=== PATIENT | female | born 1990 | race Caucasian/White ===

== ENCOUNTER 2017-06-03 10:59 | Inpatient (IN) | payer MEDICAID ==
[~2017-06-03] VITALS: Ht 162.6 cm; Wt 67.7 kg
[2017-06-03 11:00] VITALS: BP 134/89; PULSE 114; RESP 20; TEMP 98.3; O2SAT 100
[2017-06-03 11:55] LABS: AUTOMATED NEUTROPHIL # 9.8 TH/MM3 (1.8-7.7); BASOPHIL # 0.1 TH/MM3 (0-0.2); BASOPHIL % 0.5 % (0.0-2.0); EOSINOPHIL % 0.3 % (0.0-4.0); HEMATOCRIT 33.8 % (35.0-46.0); HEMO FLAGS DIFF FINAL; LYMPH % 10.4 % (9.0-44.0); LYMPHOCYTE # 1.3 TH/MM3 (1.0-4.8); MEAN CELL VOLUME 82.8 FL (80.0-100.0); MEAN CORPUSCULAR HEMOGLOBIN 27.3 PG (27.0-34.0); MEAN CORPUSCULAR HGB CONC 32.9 % (32.0-36.0); MONO % 7.9 % (0.0-8.0); NEUT % 80.9 % (16.0-70.0); PLATELET COUNT 345 TH/MM3 (150-450); RED BLOOD COUNT 4.08 MIL/MM3 (4.00-5.30); WHITE BLOOD COUNT 12.1 TH/MM3 (4.0-11.0)
[2017-06-03 12:02] LABS: BACTERIA, URINE MOD /hpf; BLOOD, URINE LARGE (NEG); GLUCOSE,URINE NEG (NEG); KETONE, URINE NEG (NEG); NITRITE,URINE NEG (NEG); PH, URINE 6.5 (5.0-8.5); SQUAMOUS EPITHELIAL CELL URINE 1 /hpf (0-5)
[2017-06-03 12:04] LABS: COMMENT (UR) CULTURE INDICATED; CULTURE IF INDICATED CULTURE INDICATED; URINE COLOR LIGHT-RED (YELLW/STRAW)
[2017-06-03 12:05] VITALS: BP 116/68; PULSE 108; RESP 18; TEMP 98.5; O2SAT 100
[2017-06-03 12:14] LABS: BICARBONATE 27.1 MEQ/L (21.0-32.0); CALCIUM-PROTEIN CORRECTED 11.4 MG/DL (8.5-10.1); POTASSIUM 3.9 MEQ/L (3.5-5.1); TOTAL BILIRUBIN ADULT 0.3 MG/DL (0.2-1.0)
[2017-06-03] MEDS ORDERED: SODIUM CHLOR 0.9% 1000 ML INJ 1,000 ML IV SCH (12:14)
[2017-06-03] MEDS ORDERED: KETOROLAC TROMETHAMINE 30 MG/ML (IVP) VIAL IVP ONE (12:15)
--- NOTE | 2017-06-03 12:23 | PD ---
HPI Chief Complaint: Complaint Time Seen by Provider: 12:15 Travel History International Travel<30 days: No Contact w/Intl Traveler<30days: No Traveled to known affect area: No History of Present Illness HPI 27 year old female with past medical history of kidney stones and hyperparathyroid presents to the emergency department for evaluation of bilateral flank pain since March. She reports over the last 24 hours the pain has intensified and she has subjective fever, chills, nausea ,vomiting and hematuria. Patient reports in March she was diagnosed with bilateral kidney stones the right side requiring stent placement. She reports she has not followed up with urology since the procedure. She reports that she has had continued pain since March. She also reports some right sided abdominal pain that has been present since March. [facility] Past Medical History Narrative Medical Significant for hyperparathyroid and nephrolithiasis Cardiovascular Problems: Yes (HTN) Diminished Hearing: No Kidney Stones: Yes (stent) Tetanus Vaccination: Unknown Influenza Vaccination: No ?: Not LMP: 05/18/17 : 2 Para: 1 Miscarriage: 1 Past Surgical History Section: Yes (1) Social History Alcohol Use: No Tobacco Use: No Substance Use: No Allergies-Medications (Allergen,Severity, Reaction): Coded Allergies: Penicillin (Verified Allergy, Intermediate, RASH, 06/03/17) Reported Meds & Prescriptions Reported Meds & Active Scripts Active No Active Prescriptions or Reported Medications Review of Systems Except as stated in HPI: all other systems reviewed are Neg General / Constitutional: Positive: Fever Eyes: No: Visual changes HENT: No: Headaches Cardiovascular: No: Chest Pain or Discomfort Respiratory: No: Shortness of Breath Gastrointestinal: Positive: Vomiting, Diarrhea, Abdominal Pain Musculoskeletal: No: Pain Skin: No Rash Physical Exam Narrative GENERAL: Alert, well-appearing female SKIN: Focused skin assessment warm/dry. HEAD: Atraumatic. Normocephalic. EYES: Pupils equal and round. No scleral icterus. No injection or drainage. ENT: No nasal bleeding or discharge. Mucous membranes pink and moist. NECK: Trachea midline. No JVD. CARDIOVASCULAR: Mildly tachycardic.Regular rate and rhythm. No murmur appreciated. RESPIRATORY: No accessory muscle use. Clear to auscultation. Breath sounds equal bilaterally. GASTROINTESTINAL: Abdomen soft, point tenderness right upper and lower quadrants , nondistended. No guarding or rebound .Hepatic and splenic margins not palpable. Bilateral CVA tenderness MUSCULOSKELETAL: No obvious deformities. No clubbing. No cyanosis. No edema. NEUROLOGICAL: Awake and alert. No obvious cranial nerve deficits. Motor grossly within normal limits. Normal speech. PSYCHIATRIC: Appropriate mood and affect; insight and judgment normal. Data Data Last Documented VS Vital Signs Date Time Temp Pulse Resp B/P Pulse Ox O2 Delivery O2 Flow Rate FiO2 06/03/17 14:00 98.2 96 16 122/67 100 Room Air Orders Urinalysis - C+S If Indicated (06/03/17 11:12) Ed Urine Pregnancytest Poc (06/03/17 11:12) Complete Blood Count With Diff (06/03/17 11:12) Comprehensive Metabolic Panel (06/03/17 11:12) Lipase (06/03/17 11:12) Urine Culture (06/03/17 11:25) Ct Abd/Pel W/O Iv Contrast (06/03/17 12:14) Sodium Chlor 0.9% 1000 Ml Inj (Ns 1000 M (06/03/17 12:14) Ketorolac Inj (Toradol Inj) (06/03/17 12:15) Ceftriaxone Inj (Rocephin Inj) (06/03/17 13:45) Lactic Acid Sepsis Protocol (06/03/17 13:45) Blood Culture (06/03/17 13:45) Labs Laboratory Tests Test 06/03/17 11:25 White Blood Count 12.1 TH/MM3 Red Blood Count 4.08 MIL/MM3 Hemoglobin 11.1 GM/DL Hematocrit 33.8 % Mean Corpuscular Volume 82.8 FL Mean Corpuscular Hemoglobin 27.3 PG Mean Corpuscular Hemoglobin 32.9 % Concent Red Cell Distribution Width 13.0 % Platelet Count 345 TH/MM3 Mean Platelet Volume 8.6 FL Neutrophils (%) (Auto) 80.9 % Lymphocytes (%) (Auto) 10.4 % Monocytes (%) (Auto) 7.9 % Eosinophils (%) (Auto) 0.3 % Basophils (%) (Auto) 0.5 % Neutrophils # (Auto) 9.8 TH/MM3 Lymphocytes # (Auto) 1.3 TH/MM3 Monocytes # (Auto) 1.0 TH/MM3 Eosinophils # (Auto) 0.0 TH/MM3 Basophils # (Auto) 0.1 TH/MM3 CBC Comment DIFF FINAL Differential Comment Urine Color LIGHT-RED Urine Turbidity HAZY Urine pH 6.5 Urine Specific [place] 1.017 Urine Protein 100 mg/dL Urine Glucose (UA) NEG mg/dL Urine Ketones NEG mg/dL Urine Occult Blood LARGE Urine Nitrite NEG Urine Bilirubin NEG Urine Urobilinogen LESS THAN 2.0 MG/DL Urine Leukocyte Esterase LARGE Urine RBC /hpf Urine WBC 151 /hpf Urine Squamous Epithelial 1 /hpf Cells Urine Bacteria MOD /hpf Microscopic Urinalysis Comment CULTURE INDICATED Sodium Level 134 MEQ/L Potassium Level 3.9 MEQ/L Chloride Level 103 MEQ/L Carbon Dioxide Level 27.1 MEQ/L Anion Gap 4 MEQ/L Blood Urea Nitrogen 15 MG/DL Creatinine 1.68 MG/DL Estimat Glomerular Filtration 36 ML/MIN Rate Random Glucose 128 MG/DL Calcium Level 12.3 MG/DL Protein Corrected Calcium 11.4 MG/DL Total Bilirubin 0.3 MG/DL Aspartate Amino Transf 14 U/L (AST/SGOT) Alanine Aminotransferase 19 U/L (ALT/SGPT) Alkaline Phosphatase 179 U/L Total Protein 8.5 GM/DL Albumin 3.6 GM/DL Lipase 81 U/L [facility] Medical Decision Making Medical Screen Exam Complete: Yes Emergency Medical Condition: Yes Differential Diagnosis Nephrolithiasis, hydronephrosis, UTI, appendicitis Narrative Course 27-year-old female with history of bilateral kidney stones presents to the emergency department for evaluation of bilateral flank pain, abdominal pain, fever, chills, nausea and vomiting. Patient reports that she has had bilateral flank pain as well as right-sided abdominal pain since March when she was diagnosed with kidney stones and had a right ureter stent placed. Her pain has intensified of the last 24 hours prompting her visit today. IV access established, labs and urine pending, IV hydration and pain medication ordered. CT scan pending. CBC: WBC 12.1 BMP: Calcium 12.8-patient reports she has chronically elevated calcium levels due to her hyperparathyroid UA: Positive for blood, white blood cells, bacteria CT abdomen and pelvis: Shows moderate to severe bilateral hydronephrosis. Bilateral renal stones. Physician Communication Physician Communication [id number] Santiago [facility] control [facility] he agrees to see patient & would like her admitted to medicine. Diagnosis Primary Impression: Hydronephrosis Qualified Code: N13.30 - Hydronephrosis, unspecified hydronephrosis type Additional Impressions: UTI (urinary tract infection) Qualified Code: N39.0 - Urinary tract infection with hematuria, site unspecified Acute kidney injury Nephrolithiasis Scripts No Active Prescriptions or Reported Meds Jennie Christensen Jun 03, 2017 12:23
--- NOTE | 2017-06-03 13:31 | RADRPT ---
EXAM DATE/TIME: 06/03/2017 12:57 [facility] COMPARISON: No previous studies available for comparison. INDICATIONS : Hematuria with history of renal stones. ORAL CONTRAST: No oral contrast ingested. RADIATION DOSE: 9.96 CTDIvol (mGy) MEDICAL HISTORY : Renal calculi. Hypertension. SURGICAL HISTORY : Renal stents ENCOUNTER: Initial ACUITY: 1 day PAIN SCALE: 5/10 LOCATION: Bilateral flank TECHNIQUE: Volumetric scanning of the abdomen and pelvis was performed. Using automated exposure control and ad justment of the mA and/or kV according to patient size, radiation dose was kept as low as reasonably achievable to obtain optimal diagnostic quality images. DICOM format image data is available electro nically for review and comparison. FINDINGS: LOWER LUNGS: The visualized lower lungs are clear. LIVER: Homogeneous density without lesion. There is no dilation of the biliary tree. No calcified gallston es. SPLEEN: Normal size without lesion. PANCREAS: Within normal limits. KIDNEYS: There is a moderate to severe right hydronephrosis and hydroureter. Double-J ureteral stent is presen t with proximal aspect of the renal pelvis and distal aspect in the urinary bladder. However, there r emains significant hydroureter. There are 3 nonobstructing right renal stones measuring between 2 mm and 8 mm. No right ureteral stones are visualized. There is also severe left hydronephrosis and hydro ureter caused by an irregular shaped elongated stone in the distal left ureter just proximal to the u reterovesical junction measuring 18 x 9 mm. There are is a single nonobstructing stone in the left lo wer pole kidney measuring 4 mm. ADRENAL GLANDS: Within normal limits. VASCULAR: There is no aortic aneurysm. BOWEL/MESENTERY: The stomach, small bowel, and colon demonstrate no acute abnormality. There is no free intraperitone al air or fluid. ABDOMINAL WALL: Within normal limits. RETROPERITONEUM: There is no lymphadenopathy. BLADDER: No wall thickening or mass. REPRODUCTIVE: Within normal limits. IUD is present. INGUINAL: There is no lymphadenopathy or hernia. MUSCULOSKELETAL: Within normal limits for patient age. CONCLUSION: 1. There is an 18 x 9 mm stone in the distal left ureter just proximal to the ureterovesical junction . It is causing severe left hydronephrosis and hydroureter. 2. There is moderate to severe right hydronephrosis and hydroureter. Ureteral stent is present. Since the hydronephrosis remains the ureteral stent may not be functioning appropriately or may be occlude d. 3. There are bilateral nonobstructing renal stones, 3 in the right kidney and one in the left kidney. Heri Burks MD on June 03, 2017 at 13:20 Board Certified Radiologist. This report was verified electronically.
[2017-06-03] MEDS ORDERED: cefTRIAXone INJ 1,000 MG in SODIUM CHLORIDE 0.9% INJ 100 ML IV ONE (13:45)
[2017-06-03 14:00] VITALS: BP 122/67; PULSE 96; RESP 16; TEMP 98.2; O2SAT 100
[2017-06-03] MEDS ORDERED: ONDANSETRON HCL 4 MG/2 ML VIAL IV PUSH PRN (15:00)
[2017-06-03] MEDS ORDERED: HYDROmorphone HCL PF 1 MG/ML VIAL IV PUSH PRN (15:30)
--- NOTE | 2017-06-03 15:54 | HHI.HP ---
HPI Service [facility] Primary Care Physician PRIYA Mota Admission Diagnosis hydronephrosis, JUAN CARLOS, UTI, nephrolithiasis Diagnoses: Chief Complaint: Severe flank pain, hematuria, hydronephrosis, nephrolithiasis Travel History International Travel<30 Days: No Contact w/Intl Traveler <30 Da: No Traveled to Known Affected Are: No Sepsis Criteria SIRS Criteria (2 or more): Heart rate over 90, WBC > 71226, < 4000 or > 10% bands Sepsis Criteria (SIRS+source): Infect source susp/known Severe Sepsis (+one): Organ Dysfunction, Acute Oliguria/Renal Failure Criteria Outcome: Meets SIRS criteria, Meets sepsis criteria History of Present Illness Written by Aries East, acting as scribe for Dr. Wu on 06/03/17 at 15: 28. Patient is a 27-year-old female with primary medical history of kidney stones status post stent placement on the right kidney, hyperparathyroidism who came into the hospital for complaints of increasing and severe flank pain. Patient states she went to [facility] last March 2017 and was found to have kidney stones on both kidneys and they did right stent placement. Postprocedure patient was unable to follow up with urologist stating that the urologist does not accept her insurance. Reports since after stent placement she continues to have blood in the urine but last night the pain was increasing she had vomited last night and this morning, noticed to have fevers and chills that she came to the hospital for further evaluation. States pain continues to be on bilateral flank left greater than the right, rated 8/10, radiates towards the pelvic area, relieved by pain medication. Patient reports dysuria, hematuria, increased urination, also suprapubic pain. Patient also states that she was seen in November 2015 in [place] and have left side nephrostomy tube placement secondary to kidney stones. Denies SOB/ dyspnea. Denies chest pain, palpitations, headaches, dizziness. Denies fevers, chills, diarrhea. Review of Systems Except as stated in HPI: all other systems reviewed are Neg Past Family Social History Past Medical History Kidney stones Hyperparathyroidism Past Surgical History Right kidney Stent placement 03/2017 Nephrostomy tube placement 11/2015 Reported Medications No Active Prescriptions or Reported Medications Allergies: Coded Allergies: Penicillin (Verified Allergy, Intermediate, RASH, 06/03/17) Active Ordered Medications Inpatient Medications Ceftriaxone Sodium 1000 mg/ Sodium Chloride 50 ml @ 100 mls/hr DAILY IV ; Start 06/04/17 at 13:00; Status UNV Ceftriaxone Sodium/Sodium Chloride (Rocephin Inj/NS Inj) 100 ml @ 200 mls/hr ONCE ONCE IV Last administered on 06/03/17 14:20; Start 06/03/17 at 13:45; Stop 06/03/17 at 14:14; Status DC Ketorolac Tromethamine 30 mg 30 mg ONCE ONCE IVP Last administered on 12:35; Start 06/03/17 at 12:15; Stop 06/03/17 at 12:17; Status DC Ondansetron HCl 4 mg 4 mg Q8HR PRN IV PUSH NAUSEA; Start 06/03/17 at 15:00; Status UNV Sodium Chloride (NS 1000 ml Inj) 1,000 ml @ 125 mls/hr Q8H IV ; Start 06/03/17 at 15:00; Status UNV Current Medications Medications (Trade) Dose Ordered Sig/James Route Start Time Stop Time Status Last Admin Ondansetron HCl 4 mg 4 mg Q8HR PRN IV PUSH 06/03/17 15:00 UNV Ceftriaxone Sodium 1000 mg/ Sodium Chloride 50 ml @ 100 mls/hr DAILY IV 06/04/17 13:00 UNV (NS 1000 ml Inj) 1,000 ml @ 125 mls/hr Q8H IV 06/03/17 15:00 UNV Family History Mother and sister have asthma and thyroid disease Aunt has kidney stones Social History Denies alcohol use Denies tobacco use Denies illicit drug use Physical Exam Vital Signs Vital Signs Date Time Temp Pulse Resp B/P Pulse Ox O2 Delivery O2 Flow Rate FiO2 06/03/17 14:00 98.2 96 16 122/67 100 Room Air 06/03/17 12:05 98.5 108 18 116/68 100 Room Air 06/03/17 11:00 98.3 114 20 134/89 100 Room Air Physical Exam GENERAL: This is a well-nourished, well-developed patient, in no apparent distress. SKIN: Left flank with small circular scar from nephrostomy. Warm and dry. HEAD: Atraumatic. Normocephalic. No temporal or scalp tenderness. EYES: Pupils equal round and reactive. Extraocular motions intact. No scleral icterus. No injection or drainage. ENT: Nose without bleeding. Throat without erythema. Uvula midline. Airway patent. NECK: Trachea midline. No JVD or lymphadenopathy. Supple, nontender, no meningeal signs. CARDIOVASCULAR: Regular rate and rhythm without murmurs, gallops, or rubs. RESPIRATORY: Clear to auscultation. Breath sounds equal bilaterally. No wheezes , rales, or rhonchi. GASTROINTESTINAL: Abdomen soft, non-tender, nondistended. Tenderness bilateral groin and suprapubic area to palpate. Left flank tenderness, CVA tenderness. MUSCULOSKELETAL: Extremities without clubbing, cyanosis, or edema. NEUROLOGICAL: Awake and alert. Oriented to person, place, and time. Motor and sensory grossly within normal limits. Five out of 5 muscle strength in all muscle groups. Normal speech. Laboratory Laboratory Tests Test 06/03/17 06/03/17 11:25 14:12 White Blood Count 12.1 Red Blood Count 4.08 Hemoglobin 11.1 Hematocrit 33.8 Mean Corpuscular Volume 82.8 Mean Corpuscular Hemoglobin 27.3 Mean Corpuscular Hemoglobin 32.9 Concent Red Cell Distribution Width 13.0 Platelet Count 345 Mean Platelet Volume 8.6 Neutrophils (%) (Auto) 80.9 Lymphocytes (%) (Auto) 10.4 Monocytes (%) (Auto) 7.9 Eosinophils (%) (Auto) 0.3 Basophils (%) (Auto) 0.5 Neutrophils # (Auto) 9.8 Lymphocytes # (Auto) 1.3 Monocytes # (Auto) 1.0 Eosinophils # (Auto) 0.0 Basophils # (Auto) 0.1 CBC Comment DIFF FINAL Differential Comment Urine Color LIGHT-RED Urine Turbidity HAZY Urine pH 6.5 Urine Specific [place] 1.017 Urine Protein 100 Urine Glucose (UA) NEG Urine Ketones NEG Urine Occult Blood LARGE Urine Nitrite NEG Urine Bilirubin NEG Urine Urobilinogen LESS THAN 2.0 Urine Leukocyte Esterase LARGE Urine RBC Urine WBC 151 Urine Squamous Epithelial 1 Cells Urine Bacteria MOD Microscopic Urinalysis Comment CULTURE INDICATED Sodium Level 134 Potassium Level 3.9 Chloride Level 103 Carbon Dioxide Level 27.1 Anion Gap 4 Blood Urea Nitrogen 15 Creatinine 1.68 Estimat Glomerular Filtration 36 Rate Random Glucose 128 Calcium Level 12.3 Protein Corrected Calcium 11.4 Total Bilirubin 0.3 Aspartate Amino Transf 14 (AST/SGOT) Alanine Aminotransferase 19 (ALT/SGPT) Alkaline Phosphatase 179 Total Protein 8.5 Albumin 3.6 Lipase 81 Lactic Acid Level 0.8 Date/Time Procedure Status Source Growth 06/03/17 14:10 Aerobic Blood Culture Received Blood Peripheral Pending 06/03/17 14:10 Anaerobic Blood Culture Received Blood Peripheral Pending 06/03/17 11:25 Urine Culture Received Urine Clean Catch Pending Result Diagram: 06/03/17 1125 06/03/17 1125 Imaging Last Impressions Abdomen/Pelvis CT 06/03/17 1214 Signed Impressions: Service Date/Time: May 12:57 - CONCLUSION: 1. There is an 18 x 9 mm stone in the distal left ureter just proximal to the ureterovesical junction. It is causing severe left hydronephrosis and hydroureter. 2. There is moderate to severe right hydronephrosis and hydroureter. Ureteral stent is present. Since the hydronephrosis remains the ureteral stent may not be functioning appropriately or may be occluded. 3. There are bilateral nonobstructing renal stones, 3 in the right kidney and one in the left kidney. Heri Burks MD Assessment and Plan Problem List: (1) Nephrolithiasis ICD Code: N20.0 Status: Acute (2) Acute kidney injury ICD Code: N17.9 Status: Acute (3) Hydronephrosis ICD Code: N13.30 Status: Acute Assessment and Plan Patient is a 27-year-old female with primary medical history of kidney stones status post stent placement on the right kidney, hyperparathyroidism who came into the hospital for complaints of increasing and severe flank pain. Sepsis, SIRS Hydronephrosis Pyelonephritis - Leukocytosis 12.1, UA large local esterase, large occult blood, urine bacteria moderate, urine WBC 151. Pending cultures - CT abdomen and pelvis showed 1. There is an 18 x 9 mm stone in the distal left ureter just proximal to the ureterovesical junction it is causing severe left hydronephrosis and hydroureter. 2. There is a moderate to severe right hydronephrosis and hydroureter. Ureteral stent is present. Since the hydronephrosis remains the urethral stent may not be functioning appropriately or maybe included. 3. There are bilateral nonobstructing renal stones, 3 in the right kidney and one in the left kidney. - Patient has recurrent kidney stone with nonfunctional stent placement unable to follow up with urology. - Consult urology - Ceftriaxone IV daily - Nothing by mouth for now until seen by urology - Pain management, hydromorphone IV every 4 hours when necessary Acute kidney injury - Creatinine 1.68 - IV fluid for hydration - Secondary to hydronephrosis - Avoid nephrotoxins - Trend BMP Hyperparathyroidism - Elevated calcium levels may contribute to recurrent kidney stones. Patient states she needs surgical intervention but has not scheduled an appointment yet. - Calcium elevated 12.3, corrected 11.4 - Check vitamin D, Phos, PTH -start IV fluid - Trend BMP Mild hyponatremia - continue with IV fluid and monitor DVT prop SCD Code Status Full code Discussed Condition With Patient, significant other, nursing, ED attending Physician Certification 2 Midnight Certification Type: Admission for Inpatient Services Order for Inpatient Services The services are ordered in accordance with Medicare regulations or non- Medicare payer requirements, as applicable. In the case of services not specified as inpatient-only, they are appropriately provided as inpatient services in accordance with the 2-midnight benchmark. Estimated LOS (days): 2 days is the estimated time the patient will need to remain in the hospital, assuming treatment plan goals are met and no additional complications. Post-Hospital Plan: Home Problem Qualifiers (1) Hydronephrosis: Qualified Code: N13.30 - Hydronephrosis, unspecified hydronephrosis type Aries Shepard Jun 03, 2017 15:54 Margaux Wu MD Jun 03, 2017 16:06
[2017-06-03] MEDS: SODIUM CHLOR 0.9% 1000 ML INJ 1,000 ML IV SCH ×2 (16:06→22:36)
[2017-06-03] MEDS: TAMSULOSIN HCL 0.4 MG CAP PO SCH (16:36)
[2017-06-03 17:06] VITALS: BP 114/64
[2017-06-03 17:51] VITALS: BP 119/68; PULSE 100; RESP 18; TEMP 98.9; O2SAT 100
--- NOTE | 2017-06-03 18:03 | MB ---
cc: TIM RAO MD DATE OF CONSULTATION: 06/03/2017. REASON FOR CONSULTATION: 1. Left distal ureteral stone with moderate hydronephrosis. 2. Left flank pain. 3. History of kidney stones. 4. Right renal calculus status post cystoscopy and right ureteral stent insertion. HISTORY OF PRESENT ILLNESS: The patient is a 27-year-old female with a past medical history of kidney stones as well as hyperparathyroidism who came to the [facility] for evaluation of worsening left flank pain. The patient describes the pain as sharp, stabbing and 10/10 at its worst with nausea. She had similar complaints back in March when she went to the [facility] and was found to have bilateral kidney stones including a stone in her right ureter causing mild hydronephrosis. She had a cystoscopy and stent placement by Dr. Busch but was unable to follow up with this urologist due to insurance issues. She has a scheduled appointment with Dr. Garcia on June 15; however, since the stent placement, she has had blood in her urine but the pain has started to worsen on her left side and she vomited last night and this morning. She also denies subjective fevers and chills. The pain is greater on the left than on the right and is 10/10 at its worst. She also claims to have hematuria and dysuria as well as frequency and suprapubic pain. She had a previous nephrostomy tube back in 2015 in [place] for kidney stones. She states that she has been diagnosed with hyperparathyroidism and she is scheduled to see a surgeon on June 22 for possible parathyroidectomy. She denies a family history of kidney stones or genitourinary malignancies. Currently her pain is improved with IV pain medication. REVIEW OF SYSTEMS: See the history of present illness, otherwise all systems reviewed and are otherwise negative. PAST MEDICAL HISTORY: Her past medical history is significant for: 1. Kidney stones. 2. Hyperparathyroidism. 3. Urinary tract infections. PAST SURGICAL HISTORY: 1. History of cystoscopy and right ureteral stent placement in March of 2017. 2. Left nephrostomy tube placement in November of 2015. ALLERGIES: PENICILLIN. HOME MEDICATIONS: No home medications. FAMILY HISTORY: Denies urolithiasis or malignancies. SOCIAL HISTORY Denies alcohol, tobacco or illicit drug use. PHYSICAL EXAMINATION: VITAL SIGNS: Temperature 98.2, pulse 96, respiratory rate 16, blood pressure 122/67, satting 100% on room air. GENERAL: She is alert and oriented times three and in no acute distress. She is a pleasant and cooperative lady who appears her stated age. HEAD, EYES, EARS, NOSE, THROAT: Head is normocephalic and atraumatic. Eyes - No scleral icterus. Extraocular muscles intact. NECK: The neck is supple. Trachea is midline. No jugular venous distention. SKIN: No ulcers or rashes. The mucous membranes are moist and pink. LUNGS: Clear to auscultation bilaterally. No wheezes, rales or rhonchi. HEART: Regular rate and rhythm. No murmurs, rubs or gallops. ABDOMEN: The abdomen is soft, nontender and nondistended. Positive bowel sounds. No costovertebral angle tenderness. PELVIC: Not done at this time. EXTREMITIES: Nontender. No cyanosis, clubbing or edema. PSYCHIATRIC: Normal affect. NEUROLOGIC: Cranial nerves II through XII intact. Strength is 5/5 in all four extremities. LABS: Labs show a white count of 12.1, hemoglobin 11.1, hematocrit 33.8, platelet count 345,000. Sodium 134, potassium 3.9, chloride 103, bicarbonate 27.1, BUN 15, creatinine 1.68, calcium 12.3. Urine shows large blood, large leukocyte esterase, negative nitrates, cultures currently pending. IMAGING STUDIES: CT of the abdomen and pelvis without contrast images are reviewed. Agree with the radiologist's report. The patient has a 1.8 cm distal left ureteral stone with moderate hydronephrosis with a small in the left lower pole kidney. The patient also has three nonspecific regular stones with the largest being 8 mm with a right ureteral stent in place and moderate hydronephrosis. ASSESSMENT AND PLAN: The patient is a 27-year-old female with history of hyperparathyroidism and kidney stones who presents with severe left flank pain and who was found to have an obstructing left distal ureteral stone with moderate hydronephrosis approximately 1.8 cm in size as well as a nonobstructing right ureteral stone with a right ureteral stent in place. PLAN: 1. Will make the patient n.p.o. after midnight. 2. Will schedule the patient for cystoscopy, left retrograde pyelogram, possible left ureteroscopy, laser lithotripsy, stent insertion on the left kidney as well as right ureteral stent exchange. I discussed the risks, benefits, alternatives with the patient and her regarding the procedure including pain, bleeding, infection, inability to pass a stent, possible need for placement of the nephrostomy tube as well as additional procedures in the future. She understood all these risks, answered all questions would like to proceed. An informed consent was obtained. Tim Rao MD EMGreta/MARCO /4:41 PM /5:48 PM
[2017-06-03 20:00] VITALS: BP 120/72; PULSE 116; RESP 18; TEMP 97.8; O2SAT 100
[2017-06-03] MEDS ORDERED: SODIUM CHLORID 0.9% 500 ML IV PRN (23:45)
[2017-06-03] MEDS ORDERED: CHLORHEXIDINE GLUCONATE 2 % 1 PACK (2 CLOTHS) TOPICAL PRN (23:45)
[2017-06-04] VITALS: BP 108/62; PULSE 115; RESP 18; TEMP 100.9; O2SAT 98
[2017-06-04] MEDS: SODIUM CHLOR 0.9% 1000 ML INJ 1,000 ML IV SCH ×3 (05:36→21:01)
[2017-06-04 07:13] LABS: AUTOMATED NEUTROPHIL # 5.1 TH/MM3 (1.8-7.7); BASOPHIL % 0.4 % (0.0-2.0); EOSINOPHIL # 0.1 TH/MM3 (0-0.4); EOSINOPHIL % 0.9 % (0.0-4.0); HEMATOCRIT 26.3 % (35.0-46.0); HEMO FLAGS DIFF FINAL; LYMPH % 25.3 % (9.0-44.0); LYMPHOCYTE # 2.1 TH/MM3 (1.0-4.8); MEAN CELL VOLUME 83.6 FL (80.0-100.0); MEAN CORPUSCULAR HEMOGLOBIN 27.4 PG (27.0-34.0); MEAN CORPUSCULAR HGB CONC 32.8 % (32.0-36.0); MONO % 11.7 % (0.0-8.0); NEUT % 61.7 % (16.0-70.0); PLATELET COUNT 268 TH/MM3 (150-450); RED BLOOD COUNT 3.14 MIL/MM3 (4.00-5.30); RED CELL DISTRIBUTION WIDTH 13.1 % (11.6-17.2); WHITE BLOOD COUNT 8.3 TH/MM3 (4.0-11.0)
[2017-06-04 07:17] LABS: BICARBONATE 26.4 MEQ/L (21.0-32.0); POTASSIUM 4.2 MEQ/L (3.5-5.1)
[2017-06-04 08:00] VITALS: BP 116/72; PULSE 98; RESP 17; TEMP 96; O2SAT 100
--- NOTE | 2017-06-04 08:20 | RADRPT ---
EXAM DATE/TIME: 06/04/2017 07:33 [facility] COMPARISON: CT ABDOMEN & PELVIS W/O CONTRAST, June 03, 2017, 12:57. INDICATIONS : Bilateral renal calculi. Left flank pain. MEDICAL HISTORY : Hypertension. Renal calculi. Hyperparathyroidism. SURGICAL HISTORY : section. Renal stents. Lithotripsy. Nephrostomy tube. ENCOUNTER: Subsequent ACUITY: 2 days PAIN SCORE: 5/10 LOCATION: Left flank FINDINGS: There is a Double J stent in place on the right with a 7 mm calcification lower pole right kidney. T here are no calcifications along the stent. The patient has an IUD in. [place] calcification is seen in the left side of the pelvis measuring 2.3 cm x 0.7 cm described in th e distal left ureter in the comparison study. Other calcifications described by the CT are not visualized by plain radiographs. CONCLUSION: 1. Stent on the right. 2. Obstructing distal ureteral calculus on the left. Saqib Pink MD FACR on June 04, 2017 at 7:49 Board Certified Radiologist. This report was verified electronically.
[2017-06-04] MEDS ORDERED: PROPOFOL 200 MG/20 ML AMP IV ONE (08:32)
[2017-06-04] MEDS ORDERED: ePHEDrine/NS 25 MG/5 ML SYR IV ONE (08:32)
[2017-06-04] MEDS ORDERED: PHENYLEPH/NS 1000 MCG/10 ML SYR IV ONE (08:32)
[2017-06-04] MEDS ORDERED: ONDANSETRON HCL 4 MG/2 ML VIAL IV PUSH ONE (08:33)
[2017-06-04] MEDS ORDERED: IOHEXOL 300 MG/ML 50 ML BTL (for RAD DIAG) ONE (08:38)
[2017-06-04] MEDS: TAMSULOSIN HCL 0.4 MG CAP PO SCH (09:00)
--- NOTE | 2017-06-04 09:39 | HHI.PR ---
Subjective Remarks f/u; nephrolithiasis has mild pain to the left flank. Tmax 100.9. no dizziness,nausea or vomiting. Objective Vitals Vital Signs Date Time Temp Pulse Resp B/P Pulse Ox O2 Delivery O2 Flow Rate FiO2 06/04/17 08:00 96.0 98 17 116/72 100 06/04/17 00:00 100.9 115 18 108/62 98 06/03/17 20:00 97.8 116 18 120/72 100 06/03/17 17:51 98.9 100 18 119/68 100 06/03/17 17:06 77 16 114/64 100 06/03/17 14:00 98.2 96 16 122/67 100 Room Air 06/03/17 12:05 98.5 108 18 116/68 100 Room Air 06/03/17 11:00 98.3 114 20 134/89 100 Room Air I/O 06/03/17 06/03/17 06/03/17 06/04/17 06/04/17 06/04/17 07:00 15:00 23:00 07:00 15:00 23:00 Intake Total 720 ml 1092 ml Output Total 2150 ml Balance 720 ml -1058 ml Intake Oral 480 ml 0 ml IV Total 240 ml 1092 ml Output Urine Total 2150 ml # Voids 0 # Bowel Movements 0 0 Result Diagram: 06/04/17 0543 06/04/17 0543 Imaging Last Impressions Abdomen/Pelvis CT 06/03/17 1214 Signed Impressions: Service Date/Time: May 12:57 - CONCLUSION: 1. There is an 18 x 9 mm stone in the distal left ureter just proximal to the ureterovesical junction. It is causing severe left hydronephrosis and hydroureter. 2. There is moderate to severe right hydronephrosis and hydroureter. Ureteral stent is present. Since the hydronephrosis remains the ureteral stent may not be functioning appropriately or may be occluded. 3. There are bilateral nonobstructing renal stones, 3 in the right kidney and one in the left kidney. Heri Burks MD Objective Remarks GENERAL: This is a well-nourished, well-developed patient, in no apparent distress. CARDIOVASCULAR: Regular rate and regular rhythm without murmurs, gallops, or rubs. RESPIRATORY: Clear to auscultation. Breath sounds equal bilaterally. No wheezes , rales, or rhonchi. GASTROINTESTINAL: Abdomen soft, non-tender, nondistended. Normal, active bowel sounds MUSCULOSKELETAL: Extremities without clubbing, cyanosis, or edema. NEURO: Alert & Oriented x4 to person, place, time, situation. Moves all ext x4 Procedures none Medications and IVs Current Medications Sodium Chloride (NS 1000 ml Inj) 1,000 ml @ 1,000 mls/hr Q1H IV Last administered on 06/03/17 12:35; Start 06/03/17 at 12:14; Stop 06/03/17 at 13:13; Status DC Ketorolac Tromethamine 30 mg 30 mg ONCE ONCE IVP Last administered on 12:35; Start 06/03/17 at 12:15; Stop 06/03/17 at 12:17; Status DC Ceftriaxone Sodium/Sodium Chloride (Rocephin Inj/NS Inj) 100 ml @ 200 mls/hr ONCE ONCE IV Last administered on 06/03/17 14:20; Start 06/03/17 at 13:45; Stop 06/03/17 at 14:14; Status DC Ondansetron HCl 4 mg 4 mg Q8H PRN IV PUSH NAUSEA; Start 06/03/17 at 15:00 Ceftriaxone Sodium 1000 mg/ Sodium Chloride 50 ml @ 100 mls/hr Q24H IV ; Start 06/04/17 at 13:00 Sodium Chloride (NS 1000 ml Inj) 1,000 ml @ 125 mls/hr Q8H IV Last administered on 06/04/17 05:36; Start 06/03/17 at 15:00 Hydromorphone HCl (Dilaudid Pf Inj) 0.5 mg Q4H PRN IV PUSH PAIN SCALE 1 TO 10; Start 06/03/17 at 15:30 Tamsulosin HCl 0.4 mg 0.4 mg DAILY PO Last administered on 06/03/17 16:36; Start 06/03/17 at 16:15 Sodium Chloride (NS 500 ml Inj) 500 ml @ 30 mls/hr [id number] PRN IV SEE LABEL COMMENTS; Start 06/03/17 at 23:45; Stop 06/06/17 at 23:44 Chlorhexidine Gluconate (Chlorhexidine 2% Cloth) 3 pack MARKETING STRATEGY ANALYST PRN TOPICAL SEE LABEL COMMENTS; Start 06/03/17 at 23:45; Stop 06/06/17 at 23:44 A/P Assessment and Plan Sepsis, SIRS Hydronephrosis Pyelonephritis - Pending cultures - CT abdomen and pelvis showed 1. There is an 18 x 9 mm stone in the distal left ureter just proximal to the ureterovesical junction it is causing severe left hydronephrosis and hydroureter. 2. There is a moderate to severe right hydronephrosis and hydroureter. Ureteral stent is present. Since the hydronephrosis remains the urethral stent may not be functioning appropriately or maybe included. 3. There are bilateral nonobstructing renal stones, 3 in the right kidney and one in the left kidney. - Patient has recurrent kidney stone with nonfunctional stent placement unable to follow up with urology. - Consulted urology; plan for cystoscopy , left retrograde pyelogram, today. - Ceftriaxone IV daily -continue with pain control. Acute kidney injury- improving. - IV fluid for hydration - Secondary to hydronephrosis - Avoid nephrotoxins - Trend BMP Hyperparathyroidism - Elevated calcium levels may contribute to recurrent kidney stones. Patient states she needs surgical intervention but has not scheduled an appointment yet. - Calcium level improving. - continue IV fluid - Trend BMP vitamin d deficiency; will strat replacement hypophosphatemia; will replace anemia- due to IV hydration/ dilution- will monitor H/H; CBC in am. Mild hyponatremia - continue with IV fluid and monitor DVT prop SCD Margaux Wu MD Jun 04, 2017 09:39
[2017-06-04] MEDS ORDERED: ACETAMINOPHEN 325 MG TAB PO PRN (09:45)
[2017-06-04] MEDS ORDERED: MIDAZOLAM HCL 2 MG/2 ML VIAL ONE (11:37)
[2017-06-04] MEDS ORDERED: DEXAMETHASONE SOD PHOS 4 MG/ML VIAL ONE (11:37)
[2017-06-04] MEDS ORDERED: FAMOTIDINE 20 MG/2 ML VIAL ONE (11:37)
[2017-06-04] MEDS ORDERED: CIPROFLOXACIN 400 MG PREMIX 200 ML ONE (12:00)
--- NOTE | 2017-06-04 12:27 | PD.OP ---
Operative Report Date of Surgery: Jun 04, 2017 Preoperative Diagnosis: (1) Nephrolithiasis (2) Hydronephrosis (3) Acute kidney injury Postoperative Diagnosis: Procedure: cystoscopy, left retrograde pyelogram, left ureteral stent insertion Surgeon: Tim Santiago Nuisance Animal Damage Control Agent(s): n/a Operation and Findings: right ureteral stent significantly calcified. will need ESWL to remove right stent as an outpatient. Tim Santiago MD Jun 04, 2017 12:27
[2017-06-04] MEDS ORDERED: DO NOT ADM ANY ANTICOAGULANT DRUGS PRN (12:40)
[2017-06-04] MEDS ORDERED: cefTRIAXone INJ 1,000 MG in SODIUM CHLORIDE 0.9% INJ 50 ML IV SCH (13:00)
[2017-06-04 14:09] VITALS: BP 118/71; PULSE 88; RESP 16; TEMP 96.1; O2SAT 100
[2017-06-04 16:19] VITALS: BP 116/66; PULSE 93; RESP 16; TEMP 98.6; O2SAT 100
[2017-06-04 20:00] VITALS: BP 104/64; PULSE 99; RESP 22; TEMP 95.7; O2SAT 93
[2017-06-04] MEDS: POTASSIUM PHOSPHATE/SODIUM PHOSPHATE 250 MG TAB PO SCH (21:00)
[2017-06-05] VITALS: BP 106/57; PULSE 79; RESP 21; TEMP 95.4; O2SAT 99
[2017-06-05 04:00] VITALS: BP 119/76; PULSE 65; RESP 17; TEMP 95.3; O2SAT 99
[2017-06-05] MEDS: SODIUM CHLOR 0.9% 1000 ML INJ 1,000 ML IV SCH (04:54)
[2017-06-05] MEDS: POTASSIUM PHOSPHATE/SODIUM PHOSPHATE 250 MG TAB PO SCH (04:54)
[2017-06-05 05:44] LABS: HEMATOCRIT 28.4 % (35.0-46.0)
[2017-06-05 06:59] LABS: BICARBONATE 28.5 MEQ/L (21.0-32.0); POTASSIUM 4.2 MEQ/L (3.5-5.1)
[2017-06-05 08:00] VITALS: BP 125/66; PULSE 72; RESP 17; TEMP 95.5; O2SAT 99
[2017-06-05] MEDS: TAMSULOSIN HCL 0.4 MG CAP PO SCH (08:01)
[2017-06-05] MEDS ORDERED: CHOLECALCIFEROL (VIT D3) 1000 UNIT TAB PO SCH (09:00)
--- NOTE | 2017-06-05 09:37 | HHI.PR ---
Subjective Remarks resting comfortably with no distress. has minimal right flank pain. no nausea or vomiting. afebrile. d/w the RN and no acute issues over night. Objective Vitals Vital Signs Date Time Temp Pulse Resp B/P Pulse Ox O2 Delivery O2 Flow Rate FiO2 06/05/17 08:00 95.5 72 17 125/66 99 06/05/17 04:00 95.3 65 17 119/76 99 06/05/17 00:00 95.4 79 21 106/57 99 06/04/17 20:00 95.7 99 22 104/64 93 06/04/17 16:19 98.6 93 16 116/66 100 06/04/17 14:09 96.1 88 16 118/71 100 06/04/17 13:30 98.1 89 14 117/72 100 Room Air 06/04/17 13:15 98 14 116/67 100 Room Air 06/04/17 13:00 87 14 111/57 100 Nasal Cannula 2 06/04/17 12:45 84 14 119/60 100 Nasal Cannula 2 06/04/17 12:40 97.5 94 14 123/66 100 Nasal Cannula 3 I/O 06/04/17 06/04/17 06/04/17 06/05/17 06/05/17 06/05/17 07:00 15:00 23:00 07:00 15:00 23:00 Intake Total 1092 ml 1460 ml 1165 ml 1190 ml Output Total 2150 ml 1600 ml 1180 ml Balance -1058 ml -140 ml -15 ml 1190 ml Intake Oral 0 ml 40 ml 240 ml 240 ml IV Total 1092 ml 820 ml 925 ml 950 ml Other 600 ml Output Urine Total 2150 ml 1600 ml 1180 ml # Voids 2 2 # Bowel Movements 0 Result Diagram: 06/05/17 0339 06/05/17 0339 Imaging Last Impressions Abdomen X-Ray 06/04/17 0600 Signed Impressions: Service Date/Time: Sunday, June 04, 2017 07:33 - CONCLUSION: 1. Stent on the right. 2. Obstructing distal ureteral calculus on the left. Saqib Pink MD FACR Abdomen/Pelvis CT 06/03/17 1214 Signed Impressions: Service Date/Time: May 12:57 - CONCLUSION: 1. There is an 18 x 9 mm stone in the distal left ureter just proximal to the ureterovesical junction. It is causing severe left hydronephrosis and hydroureter. 2. There is moderate to severe right hydronephrosis and hydroureter. Ureteral stent is present. Since the hydronephrosis remains the ureteral stent may not be functioning appropriately or may be occluded. 3. There are bilateral nonobstructing renal stones, 3 in the right kidney and one in the left kidney. Heri Burks MD Objective Remarks GENERAL: This is a well-nourished, well-developed patient, in no apparent distress. CARDIOVASCULAR: Regular rate and regular rhythm without murmurs, gallops, or rubs. RESPIRATORY: Clear to auscultation. Breath sounds equal bilaterally. No wheezes , rales, or rhonchi. GASTROINTESTINAL: Abdomen soft, non-tender, nondistended. Normal, active bowel sounds MUSCULOSKELETAL: Extremities without clubbing, cyanosis, or edema. NEURO: Alert & Oriented x4 to person, place, time, situation. Moves all ext x4 Procedures cystoscopy, left retrograde pyelogram, left ureteral stent insertion Medications and IVs Current Medications Sodium Chloride (NS 1000 ml Inj) 1,000 ml @ 1,000 mls/hr Q1H IV Last administered on 06/03/17 12:35; Start 06/03/17 at 12:14; Stop 06/03/17 at 13:13; Status DC Ketorolac Tromethamine 30 mg 30 mg ONCE ONCE IVP Last administered on 12:35; Start 06/03/17 at 12:15; Stop 06/03/17 at 12:17; Status DC Ceftriaxone Sodium/Sodium Chloride (Rocephin Inj/NS Inj) 100 ml @ 200 mls/hr ONCE ONCE IV Last administered on 06/03/17 14:20; Start 06/03/17 at 13:45; Stop 06/03/17 at 14:14; Status DC Ondansetron HCl 4 mg 4 mg Q8H PRN IV PUSH NAUSEA; Start 06/03/17 at 15:00 Ceftriaxone Sodium 1000 mg/ Sodium Chloride 50 ml @ 100 mls/hr Q24H IV Last administered on 06/04/17 13:00; Start 06/04/17 at 13:00 Sodium Chloride (NS 1000 ml Inj) 1,000 ml @ 125 mls/hr Q8H IV Last administered on 06/05/17 04:54; Start 06/03/17 at 15:00 Hydromorphone HCl (Dilaudid Pf Inj) 0.5 mg Q4H PRN IV PUSH PAIN SCALE 1 TO 10; Start 06/03/17 at 15:30 Tamsulosin HCl 0.4 mg 0.4 mg DAILY PO Last administered on 06/05/17 08:01; Start 06/03/17 at 16:15 Sodium Chloride (NS 500 ml Inj) 500 ml @ 30 mls/hr [id number] PRN IV SEE LABEL COMMENTS; Start 06/03/17 at 23:45; Stop 06/06/17 at 23:44 Chlorhexidine Gluconate (Chlorhexidine 2% Cloth) 3 pack LINE ASSEMBLY UTILITY WORKER PRN TOPICAL SEE LABEL COMMENTS; Start 06/03/17 at 23:45; Stop 06/06/17 at 23:44 Cholecalciferol (Vitamin D3) 2,000 units DAILY PO Last administered on 08:02; Start 06/05/17 at 09:00 Potassium Phos/ Sodium Phos (K-Phos Neutral) 250 mg Q8HR PO Last administered on 06/05/17 04:54; Start 06/04/17 at 22:00 Acetaminophen (Tylenol) 650 mg Q4H PRN PO FEVER; Start 06/04/17 at 09:45 Midazolam HCl (Versed Inj) 2 mg STK-MED ONCE .ROUTE ; Start 06/04/17 at 11:37; Stop 06/04/17 at 11:38; Status DC Dexamethasone Sodium Phosphate (Decadron Inj) 4 mg STK-MED ONCE .ROUTE ; Start 06/04/17 at 11:37; Stop 06/04/17 at 11:38; Status DC Famotidine 20 mg 20 mg STK-MED ONCE .ROUTE ; Start 06/04/17 at 11:37; Stop at 11:38; Status DC Ciprofloxacin/ Dextrose (Cipro 400 Mg Premix) 200 ml @ As Directed STK-MED ONCE .ROUTE Last administered on 06/04/17 12:03; Start 06/04/17 at 12:00; Stop 06/04/17 at 12:01; Status DC Miscellaneous Information ALL NURSING DEPARTME... UNSCH PRN .XX SEE LABEL COMMENTS; Start 06/04/17 at 12:40; Stop 06/05/17 at 12:39 Fentanyl Citrate (fentaNYL INJ) 100 mcg STK-MED ONCE .ROUTE ; Start 06/04/17 at 14:14; Stop 06/04/17 at 14:15; Status DC A/P Assessment and Plan Sepsis, SIRS Hydronephrosis Pyelonephritis - continue antibiotic- -blood cultures negative. - CT abdomen and pelvis showed 1. There is an 18 x 9 mm stone in the distal left ureter just proximal to the ureterovesical junction it is causing severe left hydronephrosis and hydroureter. 2. There is a moderate to severe right hydronephrosis and hydroureter. Ureteral stent is present. Since the hydronephrosis remains the urethral stent may not be functioning appropriately or maybe included. 3. There are bilateral nonobstructing renal stones, 3 in the right kidney and one in the left kidney. - Patient has recurrent kidney stone with nonfunctional stent placement unable to follow up with urology. - Consulted urology;s/p cystoscopy, left retrograde pyelogram, left ureteral stent insertion -cleared by urology for discharge. Acute kidney injury- improving. - IV fluid for hydration - Secondary to hydronephrosis - Avoid nephrotoxins - Trend BMP Hyperparathyroidism/hypercalcemia/ low vit. D ; patient was notified of the result. - she says that she will have a f/u as outpatient and already has an appointment; will defer to endocrinology. hypophosphatemia; replace as needed. anemia- due to IV hydration/ dilution-H/H stable. Mild hyponatremia - improved. DVT prop SCD Discharge Planning dc home today with f/u with pcp,urology and endocrinology. see med list. d/w the patient and MAGDALENO. Margaux Wu MD Jun 05, 2017 09:37
--- NOTE | 2017-06-05 09:41 | HHI.DS ---
Discharge Summary Admission Date Jun 03, 2017 at 15:05 Discharge Date: Jun 05, 2017 Admitting Diagnosis hydronephrosis, JUAN CARLOS, UTI, nephrolithiasis (1) Nephrolithiasis ICD Code: N20.0 Diagnosis: Principal (2) Acute kidney injury ICD Code: N17.9 Diagnosis: Principal (3) Hydronephrosis ICD Code: N13.30 Diagnosis: Principal Procedures cystoscopy, left retrograde pyelogram, left ureteral stent insertion Brief History - From Admission Written by Aries [place], acting as scribe for Dr. Wu on 06/03/17 at 15: 28. Patient is a 27-year-old female with primary medical history of kidney stones status post stent placement on the right kidney, hyperparathyroidism who came into the hospital for complaints of increasing and severe flank pain. Patient states she went to [facility] last March 2017 and was found to have kidney stones on both kidneys and they did right stent placement. Postprocedure patient was unable to follow up with urologist stating that the urologist does not accept her insurance. Reports since after stent placement she continues to have blood in the urine but last night the pain was increasing she had vomited last night and this morning, noticed to have fevers and chills that she came to the hospital for further evaluation. States pain continues to be on bilateral flank left greater than the right, rated 8/10, radiates towards the pelvic area, relieved by pain medication. Patient reports dysuria, hematuria, increased urination, also suprapubic pain. Patient also states that she was seen in November 2015 in [place] and have left side nephrostomy tube placement secondary to kidney stones. Denies SOB/ dyspnea. Denies chest pain, palpitations, headaches, dizziness. Denies fevers, chills, diarrhea. CBC/BMP: 06/05/17 0339 06/05/17 0339 Significant Findings Laboratory Tests Test 06/03/17 06/03/17 06/04/17 06/05/17 11:25 19:55 05:43 03:39 White Blood Count 12.1 TH/MM3 (4.0-11.0) Hemoglobin 11.1 GM/DL 8.6 GM/DL 9.4 GM/DL (11.6-15.3) (11.6-15.3) (11.6-15.3) Hematocrit 33.8 % 26.3 % 28.4 % (35.0-46.0) (35.0-46.0) (35.0-46.0) Neutrophils (%) (Auto) 80.9 % (16.0-70.0) Neutrophils # (Auto) 9.8 TH/MM3 (1.8-7.7) Monocytes # (Auto) 1.0 TH/MM3 1.0 TH/MM3 (0-0.9) (0-0.9) Urine Color LIGHT-RED (YELLW/STRAW) Urine Turbidity HAZY (CLEAR) Urine Protein 100 mg/dL (NEG-TRACE) Urine Occult Blood LARGE (NEG) Urine Leukocyte Esterase LARGE (NEG) Urine WBC 151 /hpf (0-5) Urine Bacteria MOD /hpf (NONE) Sodium Level 134 MEQ/L (136-145) Anion Gap 4 MEQ/L (5-15) Creatinine 1.68 MG/DL 1.16 MG/DL 1.27 MG/DL (0.50-1.00) (0.50-1.00) (0.50-1.00) Estimat Glomerular Filtration 36 ML/MIN (>89) 55 ML/MIN (>89) 50 ML/MIN (>89) Rate Random Glucose 128 MG/DL 110 MG/DL (74-106) (74-106) Calcium Level 12.3 MG/DL 10.8 MG/DL 12.1 MG/DL (8.5-10.1) (8.5-10.1) (8.5-10.1) Protein Corrected Calcium 11.4 MG/DL 12.0 MG/DL (8.5-10.1) (8.5-10.1) Phosphorus Level 1.5 MG/DL 1.7 MG/DL (2.5-4.9) (2.5-4.9) Aspartate Amino Transf 14 U/L (15-37) (AST/SGOT) Alkaline Phosphatase 179 U/L (45-117) Total Protein 8.5 GM/DL (6.4-8.2) 25-Hydroxy Vitamin D Total 6.5 ng/ML (30-100) Parathyroid Hormone (Intact) 474.0 PG/ML (12.4-76.8) Red Blood Count 3.14 MIL/MM3 (4.00-5.30) Monocytes (%) (Auto) 11.7 % (0.0-8.0) Chloride Level 111 MEQ/L 109 MEQ/L (98-107) (98-107) Imaging Last Impressions Abdomen X-Ray 06/04/17 0600 Signed Impressions: Service Date/Time: Sunday, June 04, 2017 07:33 - CONCLUSION: 1. Stent on the right. 2. Obstructing distal ureteral calculus on the left. Saqib Pink MD FACR Abdomen/Pelvis CT 06/03/17 1214 Signed Impressions: Service Date/Time: May 12:57 - CONCLUSION: 1. There is an 18 x 9 mm stone in the distal left ureter just proximal to the ureterovesical junction. It is causing severe left hydronephrosis and hydroureter. 2. There is moderate to severe right hydronephrosis and hydroureter. Ureteral stent is present. Since the hydronephrosis remains the ureteral stent may not be functioning appropriately or may be occluded. 3. There are bilateral nonobstructing renal stones, 3 in the right kidney and one in the left kidney. Heri Burks MD PE at Discharge GENERAL: This is a well-nourished, well-developed patient, in no apparent distress. CARDIOVASCULAR: Regular rate and regular rhythm without murmurs, gallops, or rubs. RESPIRATORY: Clear to auscultation. Breath sounds equal bilaterally. No wheezes , rales, or rhonchi. GASTROINTESTINAL: Abdomen soft, non-tender, nondistended. Normal, active bowel sounds MUSCULOSKELETAL: Extremities without clubbing, cyanosis, or edema. NEURO: Alert & Oriented x4 to person, place, time, situation. Moves all ext x4 Hospital Course Sepsis, SIRS Hydronephrosis Pyelonephritis - continue antibiotic- -blood cultures negative. - CT abdomen and pelvis showed 1. There is an 18 x 9 mm stone in the distal left ureter just proximal to the ureterovesical junction it is causing severe left hydronephrosis and hydroureter. 2. There is a moderate to severe right hydronephrosis and hydroureter. Ureteral stent is present. Since the hydronephrosis remains the urethral stent may not be functioning appropriately or maybe included. 3. There are bilateral nonobstructing renal stones, 3 in the right kidney and one in the left kidney. - Patient has recurrent kidney stone with nonfunctional stent placement unable to follow up with urology. - Consulted urology;s/p cystoscopy, left retrograde pyelogram, left ureteral stent insertion -cleared by urology for discharge. Acute kidney injury- improving. - IV fluid for hydration - Secondary to hydronephrosis - Avoid nephrotoxins - Trend BMP Hyperparathyroidism/hypercalcemia/ low vit. D ; patient was notified of the result. - she says that she will have a f/u as outpatient and already has an appointment; will defer to endocrinology. hypophosphatemia; replace as needed. anemia- due to IV hydration/ dilution-H/H stable. Mild hyponatremia - improved. DVT prop SCD Pt Condition on Discharge: Good Discharge Disposition: Discharge Home Discharge Time: <= 30 minutes Discharge Instructions DIET: Follow Instructions for: As Tolerated, No Restrictions Activities you can perform: Regular-No Restrictions Follow up Referrals: Endocrinology PCP Follow-up Urology New Medications: Ciprofloxacin (Cipro) 500 Mg Tab 500 MG PO BID Infection Days 5 Ref 0 TAB Potassium Phosphate-Sodium Phosphate (K-Phos Neutral) 155-852-130 Mg Tab 250 MG PO PCHS Electrolyte Replacement Days 2 Ref 0 TAB Tamsulosin (Flomax) 0.4 Mg Cap 0.4 MG PO DAILY kidney stone Days 10 Ref 0 CAP Margaux Wu MD Jun 05, 2017 09:41
--- NOTE | 2017-06-05 09:41 | HHI.DCPOC ---
Discharge Care Plan Diagnosis: (1) Nephrolithiasis Additional Problems kidney stone. Goals to Promote Your Health * To prevent worsening of your condition and complications * To maintain your health at the optimal level Directions to Meet Your Goals Take your medications as prescribed Follow your dietary instruction Follow activity as directed Keep your appointments as scheduled Take your immunizations and boosters as scheduled If your symptoms worsen call your PCP, if no PCP go to Urgent Care Center or Emergency Room Smoking is Dangerous to Your Health. Avoid second hand smoke Call the 24-hour hour crisis hotline for domestic abuse at Margaux Wu MD Jun 05, 2017 09:41
[2017-06-05] MEDS ORDERED: KPHOS250 PO (09:42)
[2017-06-05] MEDS ORDERED: CIPR-9 PO (09:42)
[2017-06-05] MEDS ORDERED: TAMS5CAP PO (09:47)
== END 2017-06-05 11:48 | disposition home or self-care (01) | DRG 694 ==
LOC: NEPD 10:59 → NEDA 15:05 → N07A 17:18
PROVIDERS: ADMIT Internal Medicine; ATTEND Internal Medicine
PROC: BT1F1ZZ Fluoroscopy of Left Kidney, Ureter and Bladder using Low Osmolar Contrast (ICD-10-PCS; 2017-06-04)
PROC: 0T778DZ Dilation of Left Ureter with Intraluminal Device, Via Natural or Artificial Opening Endoscopic (ICD-10-PCS; principal; 2017-06-04 11:40)
DX: N13.2 Hydronephrosis with renal and ureteral calculous obstruction (principal); N17.9 Acute kidney failure, unspecified; E87.1 Hypo-osmolality and hyponatremia; D64.9 Anemia, unspecified; E21.3 Hyperparathyroidism, unspecified; E55.9 Vitamin D deficiency, unspecified; I10 Essential (primary) hypertension
CPT/HCPCS: 74000; 74176; 74420; 80048; 80053; 81001; 82306; 83605; 83690; 83970; 84100; 84155; 84703; 85014; 85018; 85025; 87040; 87086; 96361; 96365; 96375; C1769; C2617; J0696; J0744; J1100; J1885; J2250; J2370; J2405; J3010; J7030; Q9967

== ENCOUNTER → 2017-07-08 | Day surgery (SDC) | payer MEDICAID ==
[~2017-07-08] VITALS: Ht 162.6 cm; Wt 66.1 kg
[~2017-07-08] MED LIST: BELLADONNA ALKALOIDS/OPIUM 60 MG SUPP RECTAL PRN; CHLORHEXIDINE GLUCONATE 2 % 1 PACK (2 CLOTHS) TOPICAL PRN; CIPR-9 PO; DEXAMETHASONE SOD PHOS 4 MG/ML VIAL IV ONE; DO NOT ADM ANY ANTICOAGULANT DRUGS PRN; ENAL5TAB PO; FAMOTIDINE 20 MG TAB ONE; GENTAMICIN INJ 240 MG in SODIUM CHLORIDE 0.9% INJ 100 ML IV SCH; INSULIN HUMAN REGULAR 1,000 UNITS/10 ML VIAL SQ PRN; KPHOS250 PO; LACTATED RINGER'S 1000 ML INJ 1,000 ML IV ONE; LACTATED RINGER'S 1000 ML IV PRN; METOPROLOL TARTRATE 25 MG TAB PO PRN; MIDAZOLAM HCL 2 MG/2 ML VIAL ONE; MORPHINE SULFATE 4 MG/ML INJ IV PRN; ONDANSETRON HCL 4 MG/2 ML VIAL IV PUSH ONE; ONDANSETRON HCL 4 MG/2 ML VIAL IV PUSH PRN; POVIDONE IODINE 5% (ANTISEPSIS KIT) 4 APPLICATIONS EACH NARE PRN; PROPOFOL 200 MG/20 ML AMP IV ONE; SODIUM CHLORID 0.9% 500 ML IV PRN; SODIUM CHLORIDE 0.9% INJ 100 ML ONE; TAMS5CAP PO; ceFAZolin 1,000 MG/NS 100 ML IV SCH; ceFAZolin INJ 1,000 MG VIAL ONE; fentaNYL CITRATE 250 MCG/5 ML AMP ONE; oxyCODONE/ACETAMINOPHEN 5 MG/325 MG TAB PO PRN
[2017-07-08 09:55] VITALS: BP 124/74; PULSE 86; RESP 16; TEMP 98.2; O2SAT 100
[2017-07-08 10:09] LABS: AUTOMATED NEUTROPHIL # 4.5 TH/MM3 (1.8-7.7); BASOPHIL # 0.1 TH/MM3 (0-0.2); BASOPHIL % 0.8 % (0.0-2.0); EOSINOPHIL # 0.1 TH/MM3 (0-0.4); HEMO FLAGS DIFF FINAL; LYMPH % 24.3 % (9.0-44.0); LYMPHOCYTE # 1.7 TH/MM3 (1.0-4.8); MEAN CELL VOLUME 81.6 FL (80.0-100.0); MEAN CORPUSCULAR HGB CONC 31.9 % (32.0-36.0); NEUT % 64.9 % (16.0-70.0); PLATELET COUNT 385 TH/MM3 (150-450); RED BLOOD COUNT 3.91 MIL/MM3 (4.00-5.30); RED CELL DISTRIBUTION WIDTH 14.1 % (11.6-17.2)
--- NOTE | 2017-07-08 14:21 | PD.OP ---
Operative Report Date of Surgery: Jul 08, 2017 Preoperative Diagnosis: Left ureteral calculus 2 cm in diameter and left double-J stent with right renal calculus and right double-J stent in position Postoperative Diagnosis: Same Procedure: Cystoscopy with left ureteroscopy and laser lithotripsy with stone extraction and left double-J stent exchange; cystoscopy with removal of right double-J stent with exchange over a wire Anesthesia: General LMA Surgeon: Magen Garcia Sanding Machine Tender Automatic(s): None Resident Surgeon: None Operation and Findings: 27-year-old female with history of a 2 cm left distal ureteral calculus who presented with left-sided flank pain back in early May. Patient went to the OR and a left double-J stent was inserted by Dr. fletcher at that time. Earlier in the year she had a right double-J stent placed for a obstructing stone. The stent has been in for a while and has been causing her pain. The stent was encrusted and was unable to be removed and the prior OR setting. The patient today is being brought to the operating room to undergo cystoscopy with left ureteroscopy laser lithotripsy with stone extraction and left double-J stent exchange with right double-J stent exchange. Risk and benefits were discussed and the patient is willing to proceed. Patient is brought to the operating room and identified by myself as Monique Tothlindsaywinstonmadhugracia. She is placement dorsal lithotomy position, prepped and draped in usual sterile fashion , received preprocedure antibiotics, and general LMA anesthesia was administered. 22 Irish the scope was inserted in the bladder and the left ureteral stent was identified. Using the alligator grasper forceps the stent was brought out to the urethral meatus. I was unable to pass a 0.35 sensor wire through the stent and therefore the stent was then removed. The rigid ureteroscope was then passed into the distal ureter and stone was visualized. Using a 365 laser fiber at a setting of 10 and 1000 the stone was fragmented. This took considerable time given the size of the 2 cm stone. Stone fragments were retrieved with a nitinol basket. They were sent to pathology. After the stone fragments were cleared from the distal ureter a 0.35 sensor wire was passed up into the kidney with a good curl. The cystoscope was backloaded over a wire and a 6 Irish 22 cm left double-J stent was placed difficulty. She tolerated this aspect of the procedure well and attention was then directed to the stent on the right side. The stent was noted to be encrusted at its curl. Using the alligator grasper forceps I was able to give a slight tug on the stent and it became free and slid out without difficulty. A 0.35 sensor wire was then passed back up into the right ureter through a 5 Irish open-ended catheter leaving the wire in place with a good curl. Another 6 Irish 22 cm right double-J stent was then passed through the scope and up the wire with a good chronic anemic or curl in the bladder. A stone approximately 7 mm in size was visualized within the collecting system of the right kidney and this will need to be treated in the future with extracorporeal shockwave lithotripsy. The stent was in good position in the bladder was evacuated and she was awoken and transferred to recovery room in stable condition. She will be scheduled for extracaporeal shockwave lithotripsy in the near future. Magen Garcia DO Jul 08, 2017 14:21
[2017-07-08 16:07] VITALS: BP 121/72; PULSE 82; RESP 16; TEMP 96.5; O2SAT 100
== END | disposition home or self-care (01) ==
LOC: HSDC 09:05 → MERGE 12:30
PROVIDERS: ATTEND Urology
DX: N20.2 Calculus of kidney with calculus of ureter (principal); I10 Essential (primary) hypertension; E21.5 Disorder of parathyroid gland, unspecified; Z01.818 Encounter for other preprocedural examination
CPT/HCPCS: 52332; 52356; 82365; 82370; 85025; 88300; C1726; C1769; C2617; J0690; J1100; J1580; J2250; J2405; J3010; J7120

== ENCOUNTER → 2017-08-04 | Day surgery (SDC) | payer MEDICAID | END | disposition home or self-care (01) | LOC: HSDC 10:29 | PROVIDERS: ATTEND Urology | DX: N20.0 Calculus of kidney (principal) ==